=== PATIENT | female | born 1955 | race Caucasian/White ===

== ENCOUNTER → 2017-03-02 | Outpatient (CLI) | payer BC ==
[2017-03-02 09:13] LABS: Direct HDL 92 mg/dL (>40); TRIGLYCERIDES 73 mg/dL (<150)
[2017-03-02 09:18] LABS: ALANINE AMINOTRANSFERASE 36 U/L (9-52); ALBUMIN 4.3 g/dL (3.5-5.0); ALKALINE PHOSPHATASE 54 U/L (38-126); ANION GAP 11 (5-19); ASPARTATE AMINO TRANSFERASE 30 U/L (14-36); BILIRUBIN,DIRECT 0.4 mg/dL (0.0-0.4); BILIRUBIN,TOTAL 0.7 mg/dL (0.2-1.3); BLOOD UREA NITROGEN 19 mg/dL (7-20); CARBON DIOXIDE 27 mmol/L (22-30); CHLORIDE 105 mmol/L (98-107); GLUCOSE 101 mg/dL (75-110); POTASSIUM 4.6 mmol/L (3.6-5.0); SODIUM 142.7 mmol/L (137-145); TOTAL PROTEIN 6.8 g/dL (6.3-8.2)
[2017-03-02 09:24] LABS: DIRECT LDL 75 mg/dL (<100)
== END ==
LOC: OD 08:05
PROVIDERS: ATTEND Internal Medicine Cardiovascular Disease
DX: E78.00 Pure hypercholesterolemia, unspecified (principal); Z79.899 Other long term (current) drug therapy
CPT/HCPCS: 36415; 80048; 80061; 80076

== ENCOUNTER → 2017-05-04 | Outpatient (CLI) | payer BC ==
[2017-05-04 10:15] LABS: ANION GAP 12 (5-19); BLOOD UREA NITROGEN 18 mg/dL (7-20); CALCIUM 9.6 mg/dL (8.4-10.2); CARBON DIOXIDE 25 mmol/L (22-30); CHLORIDE 106 mmol/L (98-107); GLUCOSE 104 mg/dL (75-110); POTASSIUM 4.4 mmol/L (3.6-5.0); SODIUM 143.3 mmol/L (137-145)
== END ==
LOC: OD 08:42
PROVIDERS: ATTEND Internal Medicine Cardiovascular Disease
DX: Z79.899 Other long term (current) drug therapy (principal); Z51.81 Encounter for therapeutic drug level monitoring
CPT/HCPCS: 36415; 80048

== ENCOUNTER → 2017-06-09 | Outpatient (CLI) | payer BC ==
[2017-06-09 09:05] LABS: ANION GAP 11 (5-19); BLOOD UREA NITROGEN 14 mg/dL (7-20); CARBON DIOXIDE 29 mmol/L (22-30); CHLORIDE 104 mmol/L (98-107); CREATININE RESULT 0.96 mg/dL (0.52-1.25); GLUCOSE 100 mg/dL (75-110); POTASSIUM 3.5 mmol/L (3.6-5.0); SODIUM 144.3 mmol/L (137-145)
== END ==
LOC: OD 07:55
PROVIDERS: ATTEND Internal Medicine Cardiovascular Disease
DX: I10 Essential (primary) hypertension (principal); Z79.899 Other long term (current) drug therapy
CPT/HCPCS: 36415; 80048

== ENCOUNTER 2017-06-13 16:41 | Emergency (ER) | payer BC ==
[2017-06-13] MEDS ORDERED: KETAMINE HCL INJ 500 MG/10 ML VIAL ONE (16:45)
[2017-06-13] MEDS ORDERED: IPRATROPIUM/ALBUTEROL 0.5-2.5 MG/3 ML AMPUL NEB ONE ×6 (16:45→21:03)
[2017-06-13] MEDS ORDERED: NORMAL SALINE 1000 ML 1,000 ML IV ONE (16:46)
--- NOTE | 2017-06-13 16:46 | ER Document Report ---
ED Respiratory Problem - General Mode of Arrival: Medic Information source: Emergency Med Personnel TRAVEL OUTSIDE OF THE [place] IN LAST 30 DAYS: No - HPI Patient complains to provider of: Short of breath EMS treatments: Bronchodilators, Solumedrol Associated symptoms: Other - see notes above <CARINE MEDINA - Last Filed: 06/13/17 23:58> <JASCATHERINE ANN - Last Filed: 06/14/17 01:25> - General Chief Complaint: Shortness Of Breath Stated Complaint: TROUBLE BREATHING Time Seen by Provider: 06/13/17 16:44 Notes: 62 year old female with history of COPD presents to the ED via EMS in respiratory distress. Patient was given 3 albuterol treatments, atrovent, and solumedrol per EMS. A comprehensive HPI is unobtainable secondary to the patient 's status. (CARINE MEDINA) - Related Data Allergies/Adverse Reactions: tetracycline Allergy (Severe, Verified 06/13/17 17:20) Anaphylaxis cephalexin [From Keflex] Allergy (Intermediate, Verified 06/13/17 17:20) Hives Past Medical History - General Information source: Patient - Social History Smoking Status: Unknown if Ever Smoked Family History: Reviewed & Not Pertinent <CARINE MEDINA - Last Filed: 06/13/17 23:58> Review of Systems - Review of Systems Constitutional: No symptoms reported EENT: No symptoms reported Cardiovascular: No symptoms reported Respiratory: See HPI, Short of breath Gastrointestinal: No symptoms reported Genitourinary: No symptoms reported Female Genitourinary: No symptoms reported Musculoskeletal: No symptoms reported Skin: No symptoms reported Hematologic/Lymphatic: No symptoms reported Neurological/Psychological: No symptoms reported -: Yes All other systems reviewed and negative <CARINE MEDINA - Last Filed: 06/13/17 23:58> Physical Exam - General General appearance: Alert - HEENT Head: Normocephalic, Atraumatic, Other - on BiPAP Eyes: Normal Extraocular movements intact: Yes Pupils: PERRL - Respiratory Respiratory status: Tachypnea, Other - hypoxic. No: No respiratory distress Breath sounds: Wheezing - diffuse. No: Normal - Cardiovascular Rhythm: Regular, Tachycardia Heart sounds: Normal auscultation - Abdominal Inspection: Normal - Back Back: Normal - Extremities General upper extremity: Normal inspection, Normal ROM General lower extremity: Normal inspection, Normal ROM - Neurological Neuro grossly intact: Yes - Psychological Associated symptoms: Anxious - Skin Skin Temperature: Warm Skin Moisture: Dry Skin Color: Normal <CARINE MEDINA - Last Filed: 06/13/17 23:58> <CATHERINE MARK - Last Filed: 06/14/17 01:25> - Vital signs Vitals: Resp BP Pulse Ox 22 H 155/97 H 94 06/13/17 16:47 06/13/17 16:47 06/13/17 16:47 Course - Laboratory Result Diagrams: 06/13/17 16:55 06/13/17 17:35 - Consults Dr. Guzman Time consulted: 18:40 [facility] Time consulted: 18:45 Dr. Salguero Time consulted: 20:07 <CARINE MEDINA - Last Filed: 06/13/17 23:58> - Laboratory Result Diagrams: 06/13/17 16:55 06/13/17 17:35 <CATHERINE MARK - Last Filed: 06/14/17 01:25> - Re-evaluation Re-evalutation: 06/13/17 20:25 Called to room for respiratory distress. (CARINE MEDINA) 06/14/17 00:00 Patient is a 62-year-old female who came in with difficulty breathing. Patient with wheezing on exam. X-ray with possible pneumonia. Patient has been receiving azithromycin at home for the last 2 days for cough. Patient's wheezing resolved with nebulizer, magnesium, and BiPAP. Patient was given ketamine for bronchodilation and also to help her tolerate BiPAP. Patient was much improved with no wheezing or respiratory distress and was weaned off BiPAP to Ventimask. Patient was doing well and discussed with hospitalist service. However due to elevation of troponin to 0.5, discussed with cardiology and recommend the patient be transferred. Patient was discussed with [facility] who are willing to accept the patient for further evaluation of her troponin elevation. Patient was sent to CAT scan and had a CT of her chest to further evaluate for pneumonia or pulmonary embolus. Neither pneumonia or pulmonary embolus is found. Patient per family continued to do well on Ventimask and then began having some difficulty breathing. Patient was wheezing and was again given DuoNeb, placed back on BiPAP, and given to ketamine to tolerate. Patient had improvement of her symptoms and wheezing had resolved. She was however still very anxious. Patient then became extremely short of breath and hypoxic. Lung sounds consistent with flash pulmonary edema. Patient was given sublingual nitroglycerin immediately and chest x-ray was obtained showing edema on the right greater than left. Patient's started on a nitroglycerin drip at 102 100 mcg/min and given multiple more doses of sublingual next her glycerin as well as 120 of IV Lasix. Patient improved. Oxygenation, work of breathing improved. However, patient was becoming tired and still had crackles. Patient was discussed again with [place] [facility] and updated of the patient's status. Air was sent for patient. Patient again with improvement but still with work of breathing and wet lung sounds. She is also becoming very tired. Opted to intubate patient for airway protection. Repeat gas with acidosis. Patient in fair condition at [facility] Discussed at length with family. Total time in the room was 2-1/2 hours. Of note, I do not have access to the patient's echocardiogram. 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 echocardiogram which she is describing a fixed lesion at her apex (CATHERINE MARK) - Vital Signs Vital signs: Temp Pulse Resp BP Pulse Ox 97.9 F 16 153/95 H 93 06/13/17 20:09 06/13/17 23:26 06/13/17 23:26 06/13/17 23:26 - Laboratory Laboratory results interpreted by me: 06/13/17 06/13/17 06/13/17 16:55 17:35 17:35 WBC 15.4 H MCH 26.8 L RDW 15.4 H Plt Count 507 H Absolute Neutrophils 10.8 H Carbonic Acid ABG pH ABG pCO2 ABG pO2 ABG HCO3 ABG O2 Saturation VBG pH VBG HCO3 Chloride 108 H Glucose 181 H AST 50 H ALT 57 H NT-Pro-B Natriuret Pep 4580 H Urine Ketones Urine Blood Ur Leukocyte Esterase 06/13/17 06/13/17 06/13/17 20:50 21:08 23:30 WBC MCH RDW Plt Count Absolute Neutrophils Carbonic Acid 1.37 H ABG pH 7.25 L ABG pCO2 45.6 H ABG pO2 77.7 L ABG HCO3 19.6 L ABG O2 Saturation 93.5 L VBG pH 7.27 L VBG HCO3 17.2 L Chloride Glucose AST ALT NT-Pro-B Natriuret Pep Urine Ketones TRACE H Urine Blood SMALL H Ur Leukocyte Esterase SMALL H - Consults Dr. Guzman Reason for consultation: 06/13/17 18:40 Patient was discussed with Dr. Guzman who will talk to Dr. Saba to determine admission. 06/13/17 18:48 Patient will be transferred as per Dr. Saba. (CARINE MEDINA) [facility] Reason for consultation: 06/13/17 18:45 [facility] was called and a message was left. 06/13/17 20:00 Attempted 4 calls with no answer. Spoke with transfer line and awaiting a call from Dr. Salguero. (CARINE MEDINA) Dr. Salguero Reason for consultation: 06/13/17 20:07 Patient was discussed with Dr. Salguero and agrees to admit the patient pending open beds. 06/13/17 23:07 Dr. Salguero was updated on the patient's status and informed that she will be intubated and transferred via air. (CARINE MEDINA) Procedures - Intubation Orotracheal Airway evaluation: Copious secretions Mallampati Classification: Class 2 Medications: Ketamine Intubation method: Nasotracheal Blade type: Carole Blade size: 4 Equipment used: Glidescope ETT size: 8.0 ETT secured at: Teeth Breath Sounds after Intubation: Equal End tidal CO2 confirmed: Yes Post Intubation Xray: Yes Intubation Complications: No complications <CATHERINE MARK - Last Filed: 06/14/17 01:25> Critical Care Note - Critical Care Note Total time excluding time spent on procedures (mins): 150 - Evaluation and management of respiratory distress, respiratory failure, flash pulmonary edema, COPD exacerbation, multiple re-evaluations, coordination of transfer, counseling of patient and family <CATHERINE MARK - Last Filed: 06/14/17 01:25> Discharge <CARINE MEDINA - Last Filed: 06/13/17 23:58> <CATHERINE MARK Last Filed: 06/14/17 01:25> - Discharge Clinical Impression: COPD exacerbation, Flash pulmonary edema, NSTEMI (non-ST elevated myocardial infarction) Respiratory failure Qualifiers: Chronicity: acute Respiratory failure complication: hypoxia and hypercapnia Qualified Code(s): J96.01 - Acute respiratory failure with hypoxia; J96.02 - Acute respiratory failure with hypercapnia; J96.02 - Acute respiratory failure with hypercapnia; J96.02 - Acute respiratory failure with hypercapnia Condition: Fair Disposition: [facility] Scribe Attestation: 06/14/17 01:24 I personally performed the services described in the documentation, reviewed and edited the documentation which was dictated to the scribe in my presence, and it accurately records my words and actions. (CATHERINE MARK) Scribe Documentation - Scribe Written by John:: John Mohr, 06/13/2017 1758 acting as scribe for :: Jas <CARINE MEDINA - Last Filed: 06/13/17 23:58>
[2017-06-13] MEDS ORDERED: MAGNESIUM SULFATE/D5W 2 GM/200 ML RTUPB IV ONE (16:48)
[2017-06-13] MEDS: MAGNESIUM SULFATE/D5W 1 GM/100 ML RTUPB IV SCH ×2 (16:48→17:00)
[2017-06-13] MEDS ORDERED: KETAMINE HCL INJ 500 MG/10 ML VIAL IV ONE ×5 (16:49→21:04)
[2017-06-13] MEDS ORDERED: ROCURONIUM BROMIDE INJ 50 MG/5 ML VIAL IV ONE (16:49)
[2017-06-13 17:21] LABS: VENOUS BLOOD BASE EXCESS -1.8 mmol/L; VENOUS BLOOD HCO3 22.9 mmol/L (20-32); VENOUS BLOOD PCO2 38.9 mmHg (35-63); VENOUS BLOOD PH 7.39 (7.30-7.42)
[2017-06-13 17:22] LABS: ABSOLUTE BASOPHILS # (AUTO) 0.1 10^3/uL (0.0-0.2); ABSOLUTE EOSINOPHILS # (AUTO) 0.4 10^3/uL (0.0-0.6); ABSOLUTE LYMPHOCYTES (AUTO) 3.2 10^3/uL (0.5-4.7); ABSOLUTE MONOCYTES (AUTO) 0.9 10^3/uL (0.1-1.4); ABSOLUTE NEUT (AUTO) 10.8 10^3/uL (1.7-8.2); BASOPHILS % (AUTO) 0.7 % (0-2); EOSINOPHILS % (AUTO) 2.7 % (0-6); HEMATOCRIT 42.4 % (36.0-47.0); HEMOGLOBIN 13.8 g/dL (12.0-15.5); LYMPHOCYTES % (AUTO) 20.8 % (13-45); MEAN CORPUSCULAR HEMOGLOBIN 26.8 pg (27.0-33.4); MEAN CORPUSCULAR HGB CONC 32.6 g/dL (32.0-36.0); MEAN CORPUSCULAR VOLUME 82 fl (80-97); MONOCYTES % (AUTO) 5.9 % (3-13); PLATELET COUNT 507 10^3/uL (150-450); RED BLOOD COUNT 5.17 10^6/uL (3.72-5.28); RED CELL DISTRIBUTION WIDTH 15.4 % (11.5-14.0); SEGMENTED NEUTROPHILS % (AUTO) 69.9 % (42-78); TOTAL CELLS COUNTED % (AUTO) 100 %; WHITE BLOOD COUNT 15.4 10^3/uL (4.0-10.5)
[2017-06-13 17:27] LABS: INTERNATIONAL RATION (INR) 0.86; PROTHROMBIN TIME 12.4 SEC (11.4-15.4)
--- NOTE | 2017-06-13 17:32 | RADIOLOGY REPORT (SQ) ---
EXAM DESCRIPTION: CHEST SINGLE VIEW COMPLETED DATE/TIME: 06/13/2017 5:04 pm REASON FOR STUDY: SOB COMPARISON: None. EXAM PARAMETERS: NUMBER OF VIEWS: One view. TECHNIQUE: Single frontal radiographic view of the chest acquired. RADIATION DOSE: NA LIMITATIONS: None. FINDINGS: LUNGS AND PLEURA: Hazy opacification is seen of the right lung base with costophrenic angl e blunting. No pneumothorax. MEDIASTINUM AND HILAR STRUCTURES: No masses. Contour normal. HEART AND VASCULAR STRUCTURES: Heart normal in size. Normal vasculature. BONES: No acute findings. HARDWARE: None in the chest. OTHER: No other significant finding. IMPRESSION: In the appropriate clinical setting, subtle findings may represent a developing right lo wer lobe pneumonia. TECHNICAL DOCUMENTATION: JOB ID: [id number] [employer]- All Rights Reserved
[2017-06-13 18:14] LABS: ALANINE AMINOTRANSFERASE 57 U/L (9-52); ALBUMIN 3.8 g/dL (3.5-5.0); ALKALINE PHOSPHATASE 78 U/L (38-126); ANION GAP 11 (5-19); ASPARTATE AMINO TRANSFERASE 50 U/L (14-36); BILIRUBIN,DIRECT 0.3 mg/dL (0.0-0.4); BILIRUBIN,TOTAL 0.5 mg/dL (0.2-1.3); BLOOD UREA NITROGEN 17 mg/dL (7-20); CALCIUM 9.1 mg/dL (8.4-10.2); CARBON DIOXIDE 23 mmol/L (22-30); CHLORIDE 108 mmol/L (98-107); GLUCOSE 181 mg/dL (75-110); POTASSIUM 3.8 mmol/L (3.6-5.0); SODIUM 141.5 mmol/L (137-145); TOTAL PROTEIN 6.4 g/dL (6.3-8.2)
[2017-06-13] MEDS ORDERED: PIPERACILLIN/TAZOBACTAM 3.375 GM VIAL IV ONE (18:32)
[2017-06-13] MEDS ORDERED: ASPIRIN 81 MG TABLET, CHEWABLE PO ONE (18:49)
[2017-06-13 19:58] VITALS: BP 153/95
--- NOTE | 2017-06-13 20:57 | RADIOLOGY REPORT (SQ) ---
EXAM DESCRIPTION: CTA CHEST COMPLETED DATE/TIME: 06/13/2017 7:49 pm REASON FOR STUDY: evaluate for PE COMPARISON: Chest radiograph 06/13/2017 TECHNIQUE: CT scan of the chest performed using helical scanning technique with dynamic intravenous contrast injection. Images reviewed with lung, soft tissue and bone windows. Reconstructed coronal and sagittal MPR images reviewed. Additional 3 dimensional post-processing performed to develop Maximal Intensity Projection images (ME P). All images stored on PACS. All CT scanners at this facility use dose modulation, iterative reconstruction, and/or weight based d osing when appropriate to reduce radiation dose to as low as reasonably achievable (ALARA). [facility]: Dose Right [facility]: CareDose [facility]: Dose Right [facility]: Teradose 4D [facility]: [employer] CONTRAST TYPE AND DOSE: contrast/concentration: Isovue 370.00 mg/ml; Total Contrast Delivered: 68.0 ml; Total Saline Delivered: 109.1 ml Contrast bolus optimized for the pulmonary arteries. Not diagnostic for the aorta. RENAL FUNCTION: BUN 17; creatinine 0.93 RADIATION DOSE: CT Rad equipment meets quality standard of care and radiation dose reduction techniq ues were employed. CTDIvol: 13.2 - 15.1 mGy. DLP: 591 mGy-cm. . LIMITATIONS: None. FINDINGS: LUNGS AND PLEURA: Mild bronchial wall thickening and lower lobe air trapping involving pre dominantly the lower lobes. Right lung base scarring with mild bronchiectasis. Left lingular scarri ng versus atelectasis. No focal consolidation. AORTA AND GREAT VESSELS: No aneurysm. Contrast bolus not optimized for the aorta. HEART: No pericardial effusion. No significant coronary artery calcifications. PULMONARY ARTERIES: No emboli visualized in the main pulmonary arteries or the segmental branches. HILAR AND MEDIASTINAL STRUCTURES: No identified masses or abnormal nodes. HARDWARE: None in the chest. UPPER ABDOMEN: No significant findings. Limited exam. THYROID AND OTHER SOFT TISSUES: No masses. No adenopathy. BONES: No acute or significant finding. 3D MIPS: Confirm above findings. OTHER: No other significant finding. IMPRESSION: 1. Normal CTA of the chest. No evidence of pulmonary embolus. 2. Mild bronchial wall thickening and mosaic attenuation, consistent with acute versus chronic bronc hitis. COMMENT: Quality ID # [id number]: Final reports with documentation of one or more dose reduction techniques (e.g., Automated exposure control, adjustment of the mA and/or kV according to patient size, use of iterative reconstruction technique) TECHNICAL DOCUMENTATION: JOB ID: [id number] [employer]- All Rights Reserved
[2017-06-13] MEDS ORDERED: ALBUTEROL SULFATE 0.083% NEB 2.5 MG/3 ML AMPUL NEB ONE (21:04)
[2017-06-13 21:31] LABS: VENOUS BLOOD HCO3 17.2 mmol/L (20-32); VENOUS BLOOD PCO2 38.6 mmHg (35-63); VENOUS BLOOD PH 7.27 (7.30-7.42)
[2017-06-13] MEDS ORDERED: NITROGLYCERIN 0.4 MG/TAB 25 TAB/BOTTLE ONE (21:44)
[2017-06-13] MEDS ORDERED: NITROGLYCERIN 2% OINTMENT 1 GM PACKET ONE (21:45)
[2017-06-13] MEDS ORDERED: FUROSEMIDE INJ/PF 40 MG/4 ML SDV ONE ×2 (21:52→22:33)
[2017-06-13] MEDS ORDERED: NITROGLYCERIN/D5W 50 MG/250 ML RTUINJ IV PRN (22:00)
--- NOTE | 2017-06-13 22:17 | RADIOLOGY REPORT (SQ) ---
EXAM DESCRIPTION: CHEST SINGLE VIEW COMPLETED DATE/TIME: 06/13/2017 9:55 pm REASON FOR STUDY: SOB, LOW O2, COPD COMPARISON: Chest radiograph and chest CT performed 06/13/2017. EXAM PARAMETERS: NUMBER OF VIEWS: One view. TECHNIQUE: Single frontal radiographic view of the chest acquired. RADIATION DOSE: NA LIMITATIONS: None. FINDINGS: LUNGS AND PLEURA: This examination demonstrates the short interval development of diffuse pulmonary opacities involving predominantly the right lobes and to a lesser extent the left upper lob e with relative sparing of the lingula and left lower lobe. No pleural effusion. No pneumothorax. MEDIASTINUM AND HILAR STRUCTURES: No masses. Contour normal. HEART AND VASCULAR STRUCTURES: Heart normal in size. Normal vasculature. BONES: No acute findings. HARDWARE: None in the chest. OTHER: No other significant finding. IMPRESSION: Short interval development of right greater than left pulmonary opacities concerning for flash pulmonary edema. COMMENT: Pertinent findings on the imaging study discussed with CATHERINE MARK DO at22:00 on . TECHNICAL DOCUMENTATION: JOB ID: [id number] 1-[employer]- All Rights Reserved
[2017-06-13] MEDS ORDERED: ETOMIDATE INJ/PF 20 MG/10 ML SDV IV ONE (23:04)
[2017-06-13 23:49] LABS: ARTERIAL BLOOD BASE EXCESS -7.5 mmol/L; ARTERIAL BLOOD H2CO3 1.37 mmol/L (1.05-1.35); ARTERIAL BLOOD HCO3 19.6 mmol/L (20-26); ARTERIAL BLOOD O2 SATURATION 93.5 % (94-98); ARTERIAL BLOOD PCO2 45.6 mmHg (35-45); ARTERIAL BLOOD PH 7.25 (7.35-7.45); ARTERIAL BLOOD PO2 77.7 mmHg (80-100)
[2017-06-13 23:50] LABS: ARTERIAL BLOOD FIO2 50%
--- NOTE | 2017-06-13 23:54 | RADIOLOGY REPORT (SQ) ---
EXAM DESCRIPTION: CHEST SINGLE VIEW COMPLETED DATE/TIME: 06/13/2017 11:35 pm REASON FOR STUDY: TUBE PLACEMENT COMPARISON: None. EXAM PARAMETERS: NUMBER OF VIEWS: One view. TECHNIQUE: Single frontal radiographic view of the chest acquired. RADIATION DOSE: NA LIMITATIONS: None. FINDINGS: LUNGS AND PLEURA: Re- demonstration of right multi lobar and left upper lobe alveolar opac ities with interval increased lucency of the left lower lobe, possibly on the basis of air trapping. Fluid is seen within the right minor fissure. MEDIASTINUM AND HILAR STRUCTURES: No masses. Contour normal. HEART AND VASCULAR STRUCTURES: Heart normal in size. Normal vasculature. BONES: No acute findings. HARDWARE: Interval placement of an endotracheal tube which terminates approximately 1.5 cm cranial to the perry. OTHER: No other significant finding. IMPRESSION: 1. Re- demonstration of diffuse alveolar opacities with relative sparing of the lingula and left lower lobe, each of which demonstrate increased lucency. Patient was imaged supine; no dis crete secondary findings of pneumothorax. 2. Interval placement of an endotracheal tube terminating approximately 1.5 cm cranial to the perry . TECHNICAL DOCUMENTATION: JOB ID: [id number] [employer]- All Rights Reserved
[2017-06-14 00:10] LABS: APPEARANCE,URINE CLEAR; BILIRUBIN,URINE NEGATIVE (NEGATIVE); COLOR,URINE STRAW; GLUCOSE, URINE NEGATIVE (NEGATIVE); KETONES,URINE TRACE mg/dL (NEGATIVE); LEUKOCYTE ESTERASE,URINE SMALL (NEGATIVE); NITRITE,URINE NEGATIVE (NEGATIVE); PROTEIN,URINE NEGATIVE (NEGATIVE); URINE SPECIFIC GRAVITY 1.027; UROBILINOGEN,URINE NEGATIVE mg/dL (<2.0)
[2017-06-14] MEDS ORDERED: ROCURONIUM BROMIDE INJ 50 MG/5 ML VIAL IV ONE (00:10)
[2017-06-14] MEDS ORDERED: KETAMINE HCL INJ 500 MG/10 ML VIAL IV ONE (00:10)
--- NOTE | 2017-06-14 11:01 | EKG REPORT ---
SEVERITY:- ABNORMAL ECG - SINUS OR ECTOPIC ATRIAL TACHYCARDIA MULTIFORM VENTRICULAR PREMATURE COMPLEXES LONG R-R WITH VENTRICULAR ESCAPE LEFT BUNDLE BRANCH BLOCK : Confirmed by: Kristine Sims MD 14-Jun-2017 10:59:41
--- NOTE | 2017-06-14 11:01 | EKG REPORT ---
SEVERITY:- ABNORMAL ECG - SINUS TACHYCARDIA NONSPECIFIC INTRAVENTRICULAR CONDUCTION DELAY PROBABLE LEFT VENTRICULAR HYPERTROPHY ANTERIOR Q WAVES, POSSIBLY DUE TO LVH : Confirmed by: Kristine Sims MD 14-Jun-2017 10:59:45
== END 2017-06-14 | disposition short-term general hospital (02) ==
LOC: ER 16:41
DX: J96.02 Acute respiratory failure with hypercapnia (principal); J96.01 Acute respiratory failure with hypoxia; J44.1 Chronic obstructive pulmonary disease with (acute) exacerbation; I21.4 Non-ST elevation (NSTEMI) myocardial infarction; J81.0 Acute pulmonary edema; E87.2 Acidosis; R05 Cough; F41.9 Anxiety disorder, unspecified; Z87.892 Personal history of anaphylaxis; Z88.1 Allergy status to other antibiotic agents
CPT/HCPCS: 93005; 96376; 94640 ×2; 99291; 99292; 51702; 96375; 96365; 96366; 96367; 36415; 87040; 82803 ×2; 85025; 85610; 80053; 81001; 84484; 83605; 83880; 71010; 71275; 93010; 94660; 31500; J3490 ×3; J1940; J3475; J7030; J7620; J2543

== ENCOUNTER → 2017-06-23 | Outpatient (CLI) | payer BC ==
[2017-06-23 09:43] LABS: ANION GAP 11 (5-19); BLOOD UREA NITROGEN 17 mg/dL (7-20); CALCIUM 9.4 mg/dL (8.4-10.2); CARBON DIOXIDE 28 mmol/L (22-30); CHLORIDE 103 mmol/L (98-107); GLUCOSE 98 mg/dL (75-110); POTASSIUM 3.7 mmol/L (3.6-5.0); SODIUM 141.5 mmol/L (137-145)
== END ==
LOC: OD 07:58
PROVIDERS: ATTEND Internal Medicine Cardiovascular Disease
DX: E87.6 Hypokalemia (principal)
CPT/HCPCS: 36415; 80048

== ENCOUNTER → 2017-08-27 | Outpatient (CLI) | payer BC ==
[2017-08-27 10:33] LABS: ALANINE AMINOTRANSFERASE 44 U/L (9-52); ALBUMIN 4.5 g/dL (3.5-5.0); ALKALINE PHOSPHATASE 47 U/L (38-126); ANION GAP 10 (5-19); ASPARTATE AMINO TRANSFERASE 30 U/L (14-36); BILIRUBIN,DIRECT 0.1 mg/dL (0.0-0.4); BILIRUBIN,TOTAL 0.5 mg/dL (0.2-1.3); BLOOD UREA NITROGEN 25 mg/dL (7-20); CALCIUM 10.1 mg/dL (8.4-10.2); CARBON DIOXIDE 28 mmol/L (22-30); CHLORIDE 104 mmol/L (98-107); CHOLESTEROL 168.36 mg/dL (0-200); GLUCOSE 96 mg/dL (75-110); SODIUM 141.5 mmol/L (137-145); TOTAL PROTEIN 6.6 g/dL (6.3-8.2); TRIGLYCERIDES 52 mg/dL (<150)
[2017-08-27 10:46] LABS: DIRECT LDL 73 mg/dL (<100)
== END ==
LOC: OD 08:41
PROVIDERS: ATTEND Internal Medicine Cardiovascular Disease
DX: E78.00 Pure hypercholesterolemia, unspecified (principal); E87.6 Hypokalemia; Z79.899 Other long term (current) drug therapy
CPT/HCPCS: 36415; 80048; 80061; 80076

== ENCOUNTER → 2018-05-10 | Outpatient (CLI) | payer MEDICARE, BC ==
[2018-05-10 09:18] LABS: ALANINE AMINOTRANSFERASE 33 U/L (9-52); ALBUMIN 4.3 g/dL (3.5-5.0); ALKALINE PHOSPHATASE 56 U/L (38-126); ANION GAP 10 (5-19); ASPARTATE AMINO TRANSFERASE 28 U/L (14-36); BILIRUBIN,DIRECT 0.2 mg/dL (0.0-0.4); BILIRUBIN,TOTAL 0.7 mg/dL (0.2-1.3); BLOOD UREA NITROGEN 27 mg/dL (7-20); CALCIUM 9.6 mg/dL (8.4-10.2); CARBON DIOXIDE 28 mmol/L (22-30); CHLORIDE 104 mmol/L (98-107); CHOLESTEROL 171.46 mg/dL (0-200); GLUCOSE 109 mg/dL (75-110); POTASSIUM 4.7 mmol/L (3.6-5.0); SODIUM 141.9 mmol/L (137-145); TOTAL PROTEIN 7.1 g/dL (6.3-8.2); TRIGLYCERIDES 72 mg/dL (<150)
[2018-05-10 09:29] LABS: DIRECT LDL 88 mg/dL (<100)
== END ==
LOC: OD 08:11
PROVIDERS: ATTEND Internal Medicine Cardiovascular Disease
DX: E78.00 Pure hypercholesterolemia, unspecified (principal); I10 Essential (primary) hypertension; Z79.899 Other long term (current) drug therapy
CPT/HCPCS: 36415; 80048; 80061; 80076

== ENCOUNTER 2018-06-10 09:33 | Day surgery (SDC) | payer MEDICARE, BC ==
[~2018-06-10 09:33] MED LIST: CHONDR SU A NA/HYALUR INTRAOC KIT (SURGICARE) ONE; EPINEPHRINE INJ/PF 1 MG/1 ML AMPULE ONE; KETOROLAC TROMETHAMINE 0.45% 4 DROP/0.4 ML DROPERETTE OS PRN; LIDOCAINE 1% INJ-PF (10 MG/ML) 30 ML SDV ONE
[2018-06-10] MEDS: TROPICAMIDE 1% OPH SOLN 3 ML OS PRN ×3 (10:12→10:32)
[2018-06-10] MEDS: CYCLOPENTOLATE 0.2%/PHENYLEPHRINE 1% OPH SOLN 2 ML OS PRN ×3 (10:12→10:32)
[2018-06-10] MEDS: BESIFLOXACIN HCL 0.6% OPH SUSP 5 ML BOTTLE OS PRN ×3 (10:12→11:18)
[2018-06-10] MEDS: TETRACAINE HCL 0.5% OPH SOLN 4 ML OS PRN ×3 (10:12→10:44)
[2018-06-10] MEDS ORDERED: LIDOCAINE 1%/PHENYLEPHRINE 1.5% 1 ML VIAL ONE (10:21)
[2018-06-10] MEDS ORDERED: MIDAZOLAM 2 MG/2 ML INJ ONE ×2 (10:23→10:52)
[2018-06-10] MEDS ORDERED: FENTANYL CITRATE INJ/PF 100 MCG/2 ML AMPUL ONE (10:24)
--- NOTE | 2018-06-10 22:52 | [facility] DISCHARGE SUMMARY E ---
[facility] Discharge Summary NAME: ISH KIRK AGE: 63Y ADMITTED: 06/10/2018 DISCHARGED: This is a 63-year-old female who underwent complex cataract extraction with insertion of a toric IOL and use of the Malyugin ring. DIAGNOSES: 1. Cataract left eye. 2. Pupil miosis left eye. The patient underwent surgery because she was having difficulty reading road signs and words on the television. She should be on a regular diet. No bending at the waist and no heavy lifting. She should use her ketorolac, vigamox and Pred Forte at 3:00 p.m. and 8:00 p.m. and sleep with a rigid shield. I will see her for her 1-day postop tomorrow. DICTATING PHYSICIAN: VICTORINO REBOLLEDO M.D. [id number] PHY#: [id number] ID: [id number] JOB#: [id number] ACCT: [id number] cc:VICTORINO REBOLLEDO M.D. > MTDD
--- NOTE | 2018-06-10 22:53 | [facility] OPERATIVE REPORT E ---
[facility] Operative Report NAME: ISH KIRK AGE: 63Y DATE OF SURGERY: 06/10/2018 ROOM: PREOPERATIVE DIAGNOSES: 1. CATARACT LEFT EYE. 2. PUPIL MIOSIS, LEFT EYE. POSTOPERATIVE DIAGNOSES: 1. CATARACT LEFT EYE. 2. PUPIL MIOSIS, LEFT EYE. OPERATION: Complex cataract extraction with the use of a Malyugin ring due to pupillary miosis where the pupil measured to be less than 4 mm. SURGEON: VICTORINO REBOLLEDO M.D. ANESTHESIA: TOPICAL. COMPLICATIONS: None. ESTIMATED BLOOD LOSS: None. PROCEDURE: After obtaining appropriate consent, the patient left eye was prepped and draped in sterile fashion as well as the surgeon in a sterile manner, and the cataract surgery was started. First, the paracentesis blade was used to make a small side-port incision. Viscoelastic was used to inflate the anterior chamber. Next a 2.4 mm incision was made using a 2.4 mm keratome. At this point, the pupil was less than 4.5 mm and was very miotic. In order to complete the capsulorhexis, a Malyugin ring was inserted and found to be in excellent position to help stabilize the pupil. Following this, a continuous capsulorhexis was made using a cystitome and Utrata forceps. Following this, hydrodissection was carried out to make the lens fully loose and mobile, and it was rotated 90 degrees. Following this, a divide and conquer technique was used to phacoemulsify the lens. The remaining cortex was removed with irrigation/aspiration. Provisc was instilled into the capsular bag to inflate the bag. A SN6AT3 lens of 23.0 diopters was placed and rotated to 4 degrees. The remaining viscoelastic material was removed with irrigation/aspiration. After this the Malyugin ring was removed. Following this, the incision was found to be watertight. Besivance was instilled into the eye and a protective shield was placed over the eye. The patient returned to the postoperative recovery in stable condition. This was a complex case due to the fact that the Malyugin ring was used due to poor pupillary dilation of less than or equal to 4 mm. DICTATING PHYSICIAN: VICTORINO REBOLLEDO M.D. [id number] PHY#: [id number] ID: [id number] JOB#: [id number] ACCT: [id number] cc:VICTORINO REBOLLEDO M.D. >
== END 2018-06-10 12:03 | disposition home or self-care (01) ==
LOC: SC 09:33
PROVIDERS: ATTEND Internal Medicine
DX: H25.812 Combined forms of age-related cataract, left eye (principal); H57.03 Miosis; H25.11 Age-related nuclear cataract, right eye; E78.00 Pure hypercholesterolemia, unspecified; J44.9 Chronic obstructive pulmonary disease, unspecified; M19.90 Unspecified osteoarthritis, unspecified site; I11.9 Hypertensive heart disease without heart failure; I25.2 Old myocardial infarction; Z88.8 Allergy status to other drugs, medicaments and biological substances; Z79.51 Long term (current) use of inhaled steroids; Z79.899 Other long term (current) drug therapy; Z88.1 Allergy status to other antibiotic agents
CPT/HCPCS: 66982; V2787; J2250; J3490 ×2; A9270; J0171; J3010; J2370; 142

== ENCOUNTER → 2018-11-01 | Outpatient (CLI) | payer MEDICARE, BC ==
[2018-11-01 08:03] LABS: ANION GAP 8 (5-19); BLOOD UREA NITROGEN 21 mg/dL (7-20); CALCIUM 9.8 mg/dL (8.4-10.2); CARBON DIOXIDE 30 mmol/L (22-30); CHLORIDE 103 mmol/L (98-107); CHOLESTEROL 163.16 mg/dL (0-200); GLUCOSE 106 mg/dL (75-110); POTASSIUM 5.1 mmol/L (3.6-5.0); TRIGLYCERIDES 78 mg/dL (<150)
[2018-11-01 08:13] LABS: DIRECT LDL 76 mg/dL (<100)
== END ==
LOC: LAB 07:15
PROVIDERS: ATTEND Internal Medicine Cardiovascular Disease
DX: E78.00 Pure hypercholesterolemia, unspecified (principal); I10 Essential (primary) hypertension; R06.02 Shortness of breath; Z79.899 Other long term (current) drug therapy
CPT/HCPCS: 36415; 80048; 80061

== ENCOUNTER → 2019-01-24 | Outpatient (CLI) | payer MEDICARE, BC ==
[2019-01-24 07:05] LABS: ANION GAP 7 (5-19); BLOOD UREA NITROGEN 16 mg/dL (7-20); CALCIUM 9.4 mg/dL (8.4-10.2); CARBON DIOXIDE 30 mmol/L (22-30); CHLORIDE 104 mmol/L (98-107); GLUCOSE 100 mg/dL (75-110); POTASSIUM 4.1 mmol/L (3.6-5.0)
== END ==
LOC: LAB 06:36
PROVIDERS: ATTEND Internal Medicine Cardiovascular Disease
DX: E87.6 Hypokalemia (principal)
CPT/HCPCS: 36415; 80048

== ENCOUNTER → 2019-04-23 | Outpatient (CLI) | payer MEDICARE, BC ==
[2019-04-23 07:51] LABS: ALBUMIN 4.5 g/dL (3.5-5.0); ALKALINE PHOSPHATASE 60 U/L (38-126); ANION GAP 10 (5-19); ASPARTATE AMINO TRANSFERASE 27 U/L (14-36); BILIRUBIN,DIRECT 0.2 mg/dL (0.0-0.4); BILIRUBIN,TOTAL 0.8 mg/dL (0.2-1.3); BLOOD UREA NITROGEN 16 mg/dL (7-20); CALCIUM 9.7 mg/dL (8.4-10.2); CARBON DIOXIDE 27 mmol/L (22-30); CHLORIDE 108 mmol/L (98-107); CHOLESTEROL 173.14 mg/dL (0-200); GLUCOSE 114 mg/dL (75-110); POTASSIUM 4.5 mmol/L (3.6-5.0); TOTAL PROTEIN 7.5 g/dL (6.3-8.2); TRIGLYCERIDES 62 mg/dL (<150)
[2019-04-23 08:02] LABS: DIRECT LDL 69 mg/dL (<100)
== END ==
LOC: LAB 07:04
PROVIDERS: ATTEND Physician Assistant
DX: Z79.899 Other long term (current) drug therapy (principal); E78.00 Pure hypercholesterolemia, unspecified; I10 Essential (primary) hypertension
CPT/HCPCS: 36415; 80048; 80061; 80076

== ENCOUNTER → 2019-05-24 | Outpatient (CLI) | payer MEDICARE, BC ==
[2019-05-24 09:08] LABS: ANION GAP 8 (5-19); BLOOD UREA NITROGEN 19 mg/dL (7-20); CALCIUM 9.9 mg/dL (8.4-10.2); CARBON DIOXIDE 30 mmol/L (22-30); CHLORIDE 103 mmol/L (98-107); GLUCOSE 103 mg/dL (75-110)
== END ==
LOC: LAB 08:27
PROVIDERS: ATTEND Internal Medicine Cardiovascular Disease
DX: I10 Essential (primary) hypertension (principal); Z79.899 Other long term (current) drug therapy
CPT/HCPCS: 36415; 80048

== ENCOUNTER 2019-06-23 08:42 | Day surgery (SDC) | payer MEDICARE, BC ==
[~2019-06-23 08:42] MED LIST changes: +DORZOLAMIDE HCL 2%/TIMOLOL MALEAT 0.5% OPH SOLN 10 ML OD PRN; +KETOROLAC TROMETHAMINE 0.45% 4 DROP/0.4 ML DROPERETTE OD PRN; -KETOROLAC TROMETHAMINE 0.45% 4 DROP/0.4 ML DROPERETTE OS PRN; -LIDOCAINE 1% INJ-PF (10 MG/ML) 30 ML SDV ONE; +LIDOCAINE 1%/PHENYLEPHRINE 1.5% 1 ML VIAL ONE
[2019-06-23] MEDS: BESIFLOXACIN HCL 0.6% OPH SUSP 5 ML BOTTLE OD PRN ×3 (09:27→10:22)
[2019-06-23] MEDS: TETRACAINE HCL 0.5% OPH SOLN 4 ML OD PRN ×3 (09:27→10:02)
[2019-06-23] MEDS: CYCLOPENTOLATE 0.2%/PHENYLEPHRINE 1% OPH SOLN 2 ML OD PRN ×3 (09:27→09:53)
[2019-06-23] MEDS: TROPICAMIDE 1% OPH SOLN 15 ML OD PRN ×3 (09:27→09:53)
[2019-06-23] MEDS ORDERED: MIDAZOLAM 2 MG/2 ML INJ ONE (09:42)
[2019-06-23] MEDS ORDERED: FENTANYL CITRATE INJ/PF 100 MCG/2 ML AMPUL ONE (09:43)
--- NOTE | 2019-06-23 13:06 | Operative Report ---
Operative Report-[facility] Operative Report: DATE OF SURGERY: 06/23/2019 PREOPERATIVE DIAGNOSIS: Cataract, right eye POSTOPERATIVE DIAGNOSIS: Cataract, right eye OPERATION: Cataract extraction with insertion of an IOL of the right eye. Intraocular Lens Model: [24.5 sn60wf] Reason for surgery was difficulty seeing distance and difficulty seeing the television SURGEON: Travon Mendoza MD ANESTHESIA: Topical PROCEDURE: After obtaining appropriate consent, the patient's right eye was prepped and draped in a sterile fashion as well as the surgeon in the sterile manner and cataract surgery was started. First a paracentesis blade was used to make a side-port incision. Viscoelastic was used to inflate the anterior chamber. Next a 2.4 mm incision was made with a 2.4 mm blade, clear corneal temporarily. A continuous capsulorrhexis was made using a cystotome and Utrata forceps. Following this hydrodissection was carried out to make the alexys fully l oose and mobile and it was rotated. Following this, a divide and conquer technique was used to phacoemulsify the alexys. The remaining cortex was removed with an irrigation/aspiration. Provisc was instilled into the capsular bag to inflate the bag. The intraocular lens was placed. The remaining viscoelastic material was removed with irrigation/aspiration. Following this, the incision was found to be watertight. Besivance and Cosopt was instilled into the eye and a protective shield was placed over the eye. The patient was reurned to the postoperative recovery in a stable condition.
== END 2019-06-23 11:04 | disposition home or self-care (01) ==
LOC: SC 08:42
PROVIDERS: ATTEND Internal Medicine
DX: H25.11 Age-related nuclear cataract, right eye (principal); H57.03 Miosis; I11.9 Hypertensive heart disease without heart failure; E78.00 Pure hypercholesterolemia, unspecified; J44.9 Chronic obstructive pulmonary disease, unspecified; Z88.8 Allergy status to other drugs, medicaments and biological substances; Z88.1 Allergy status to other antibiotic agents; Z79.899 Other long term (current) drug therapy; Z79.51 Long term (current) use of inhaled steroids
CPT/HCPCS: 66984; V2632; J2250; J3490 ×2; A9270; J0171; J3010; J2370; 142

== ENCOUNTER → 2019-08-17 | Outpatient (CLI) | payer MEDICARE, BC ==
[2019-08-17 09:17] LABS: ALBUMIN 4.7 g/dL (3.5-5.0); ALKALINE PHOSPHATASE 60 U/L (38-126); ANION GAP 10 (5-19); ASPARTATE AMINO TRANSFERASE 28 U/L (14-36); BILIRUBIN,TOTAL 0.6 mg/dL (0.2-1.3); BLOOD UREA NITROGEN 18 mg/dL (7-20); CALCIUM 9.4 mg/dL (8.4-10.2); CARBON DIOXIDE 27 mmol/L (22-30); CHLORIDE 102 mmol/L (98-107); CHOLESTEROL 168.96 mg/dL (0-200); GLUCOSE 98 mg/dL (75-110); POTASSIUM 4.7 mmol/L (3.6-5.0); TOTAL PROTEIN 7.7 g/dL (6.3-8.2); TRIGLYCERIDES 59 mg/dL (<150)
[2019-08-17 09:27] LABS: DIRECT LDL 75 mg/dL (<100)
== END ==
LOC: LAB 08:31
PROVIDERS: ATTEND Internal Medicine Cardiovascular Disease
DX: E78.00 Pure hypercholesterolemia, unspecified (principal); I10 Essential (primary) hypertension; Z79.899 Other long term (current) drug therapy
CPT/HCPCS: 36415; 80048; 80061; 80076

== ENCOUNTER → 2020-06-30 | Outpatient (CLI) | payer MEDICARE, BC ==
[2020-06-30 11:29] LABS: ALBUMIN 4.7 g/dL (3.5-5.0); ALKALINE PHOSPHATASE 66 U/L (38-126); ANION GAP 9 (5-19); ASPARTATE AMINO TRANSFERASE 29 U/L (14-36); BILIRUBIN,DIRECT 0.2 mg/dL (0.0-0.4); BILIRUBIN,TOTAL 0.8 mg/dL (0.2-1.3); BLOOD UREA NITROGEN 19 mg/dL (7-20); CALCIUM 9.9 mg/dL (8.4-10.2); CARBON DIOXIDE 30 mmol/L (22-30); CHLORIDE 100 mmol/L (98-107); GLUCOSE 104 mg/dL (75-110); POTASSIUM 4.6 mmol/L (3.6-5.0); TOTAL PROTEIN 7.8 g/dL (6.3-8.2); TRIGLYCERIDES 72 mg/dL (<150)
[2020-06-30 11:40] LABS: DIRECT LDL 72 mg/dL (<100)
== END ==
LOC: OD 09:55
PROVIDERS: ATTEND Internal Medicine Cardiovascular Disease
DX: E11.9 Type 2 diabetes mellitus without complications (principal); I10 Essential (primary) hypertension; E78.00 Pure hypercholesterolemia, unspecified; Z79.899 Other long term (current) drug therapy
CPT/HCPCS: 36415; 80048; 80061; 80076; 83036